=== PATIENT | female | born 1950 | race Caucasian/White ===

== ENCOUNTER 2023-07-04 04:55 | Day surgery (SDC) | payer OTHER ==
[2023-06-26 16:06] VITALS: BMI 34.9
[2023-07-04] MEDS ORDERED: PROPOFOL 40 ML ONE (07:29)
[2023-07-04] MEDS ORDERED: MIDAZOLAM HCL 2 MG/2 ML SINGLE DOSE VIAL ONE (07:29)
[2023-07-04] MEDS ORDERED: FENTANYL CITRATE/PF 50 MCG/ML VIAL ONE ×2 (07:29→08:05)
[2023-07-04] MEDS ORDERED: ONDANSETRON 4 MG/2 ML VIAL IVPUSH PRN (07:50)
[2023-07-04] MEDS ORDERED: oxyCODONE HCL 5 MG TABLET PO PRN (07:50)
[2023-07-04] MEDS ORDERED: IBUPROFEN 600 MG TABLET (FP) PO PRN (07:50)
[2023-07-04] MEDS ORDERED: IBUPROFEN 800 MG/8 ML IJ IVPB PRN (07:50)
[2023-07-04] MEDS ORDERED: ELECTROLYTE-148 SOLN 1,000 ML IV SCH (08:00)
[2023-07-04] MEDS ORDERED: PROMETHAZINE HCL 25 MG/1 ML VIAL IVPB PRN (08:36)
[2023-07-04] MEDS ORDERED: LACTATED RINGERS SOLUTION 1,000 ML IV SCH (08:45)
[2023-07-04 10:26] VITALS: BP 115/65; PULSE 68; RESP 22; TEMP 97.5
== END 2023-07-04 10:50 | disposition home or self-care (01) ==
LOC: JASU-SURG 04:55
PROVIDERS: ATTEND Obstetrics & Gynecology
PROC: 0UBC8ZZ Excision of Cervix, Via Natural or Artificial Opening Endoscopic (ICD-10-PCS; principal; 2023-07-04 07:30)
DX: N95.0 Postmenopausal bleeding (principal); N84.1 Polyp of cervix uteri
CPT/HCPCS: 88305-TC; 94760